=== PATIENT | female | born 1960 | race Caucasian/White ===

== ENCOUNTER 2018-11-05 07:00 | Emergency (ER) | payer OTHER ==
[~2018-11-05] VITALS: Ht 170.2 cm; Wt 74.8 kg
[2018-11-05 07:40] LABS: Basophils # (auto) 0.1 uL; Basophils % (auto) 1.1 % (0.0-2.0); Eosinophils # (auto) 0.1 uL; Eosinophils % (auto) 1.7 % (0.0-7.0); Hematocrit 41.5 % (36.0-46.0); Lymphocytes # (auto) 1.2 uL; Lymphocytes % (auto) 24.7 % (10.0-50.0); Mean Corpuscular Hemoglobin 32.1 pg (28.0-32.0); Mean Corpuscular Hgb Conc. 33.8 g/dL (32.0-36.0); Mean Corpuscular Volume 94.9 fL (80.0-100.0); Monocytes # (auto) 0.5 uL; Monocytes % (auto) 10.4 % (0.0-12.0); Neutrophils % (auto) 62.1 % (37.0-80.0); Nucleated Red Blood Cells % 0.1 %; Platelet Count (auto) 217 10^3/uL (140-450); Red Blood Cells 4.38 10^6/uL (4.0-5.20); Red Cell Distribution Width 13.4 % (11.8-14.3); White Blood Cell 4.8 10^3/uL (4.4-10.8)
[2018-11-05 08:16] LABS: Alkaline Phosphatase 68 U/L (45-117); Anion Gap 6 (5-15); BUN/Creatinine Ratio 15.4; Blood Urea Nitrogen 14 mg/dL (7-18); Carbon Dioxide 28 mmol/L (21-32); Chloride 104 mmol/L (98-107); GFR African American 81 mL/min; GFR Non-African American 67 mL/min; Glucose 92 mg/dL (74-106); Potassium 3.8 mmol/L (3.5-5.1); Sodium 138 mmol/L (136-145)
[2018-11-05 08:17] LABS: Alanine Aminotransferase 24 U/L (13-56); Aspartate Aminotransferase 19 U/L (15-37); Bilirubin, Total 0.5 mg/dL (0.2-1.0); Total Protein 7.6 g/dL (6.4-8.2)
[2018-11-05] MEDS ORDERED: ASPirin 81 mg TAB PO ONE (08:30)
[2018-11-05 09:38] VITALS: BP 122/79
== END 2018-11-05 10:08 | disposition home or self-care (01) ==
LOC: ER 07:00
DX: R07.89 Other chest pain (principal); Z91.040 Latex allergy status
CPT/HCPCS: 36415; 71046; 80053; 84484; 85025; 93005

== ENCOUNTER 2022-06-14 17:59 | Emergency (ER) | payer OTHER ==
[~2022-06-14] VITALS: Ht 162.6 cm; Wt 68.0 kg
[2022-06-14] MEDS ORDERED: diphenhdrAMINE HCL 25 MG CAP PO ONE (20:45)
[2022-06-14] MEDS ORDERED: KETOROLAC TROMETH 60MG/2ML VIAL IM ONE (20:45)
[2022-06-14] MEDS ORDERED: METOCLOPRAMIDE HCL 10 MG TAB PO ONE (20:45)
[2022-06-14 21:40] LABS: Basophils # (auto) 0.1 10 ^3/uL (0-0.2); Eosinophils # (auto) 0.2 10 ^3/uL (0-0.8); Eosinophils % (auto) 3.2 % (0.0-7.0); Hemoglobin 11.7 g/dL (12.2-16.2); Lymphocytes # (auto) 2.7 10 ^3/uL (0.4-5.4); Lymphocytes % (auto) 36.1 % (10.0-50.0); Mean Corpuscular Hgb Conc. 33.3 g/dL (32.0-36.0); Mean Corpuscular Volume 87.1 fL (80.0-100.0); Monocytes # (auto) 0.9 10 ^3/uL (0-1.3); Neutrophils # (auto) 3.6 10 ^3/uL (1.6-8.6); Neutrophils % (auto) 47.7 % (37.0-80.0); Red Blood Cells 4.02 10^6/uL (4.0-5.20); Red Cell Distribution Width 13.6 % (11.8-14.3); White Blood Cell 7.5 10^3/uL (4.4-10.8)
[2022-06-14 21:55] LABS: Albumin 3.7 g/dL (3.4-5.0); BUN/Creatinine Ratio 29.6; Calcium 10.1 mg/dL (8.5-10.1); Magnesium 2.3 mg/dL (1.6-2.6)
[2022-06-14 21:57] LABS: Bilirubin, Total 0.6 mg/dL (0.2-1.0); Total Protein 7.5 g/dL (6.4-8.2)
[2022-06-14 23:28] VITALS: BP 144/83
== END 2022-06-15 01:02 | disposition home or self-care (01) ==
LOC: EDBD 17:59 → ER 18:06
DX: G43.909 Migraine, unspecified, not intractable, without status migrainosus (principal); F41.9 Anxiety disorder, unspecified; Z98.890 Other specified postprocedural states
CPT/HCPCS: 36415; 70450; 71045; 80053; 83735; 85025; 96372; 99285; J1885; J8597